=== PATIENT | female | born 1975 | race Caucasian/White ===

== ENCOUNTER → 2020-05-20 | Outpatient (CLI) | payer OTHER ==
--- NOTE | 2020-05-20 10:18 | RAD ---
DOPPLER CAROTID BILAT History: Reason: PULSATILE TINNITUS L EAR / Spl. Instructions: / History: COMPARISON: None Technique: Duplex sonography of the cervical portion of both carotid arteries was performed. Real-time grayscale, color flow Doppler, and Doppler spectral waveform analysis is performed. PQRS Compliance Statement - Stenosis calculations for CT, MR and conventional angiography are based upon measurement of the distal ICA diameter in accordance with the NASCET methodology. Stenosis calculations for carotid ultrasound studies are derived from validated velocity criteria which are known to correlate with the NASCET methodology. Findings: Right side: Peak systolic flow velocity of the CCA is 88 cm/sec. Peak systolic flow velocity of the ICA is 106 cm/sec. The ICA/CCA ratio is 1.2. Peak end diastolic flow velocity of the ICA is 39 cm/sec. The peak systolic velocity of the ECA is 105 cm/sec. No significant plaque formation is identified. Left side: Peak systolic flow velocity of the CCA is 93 cm/sec. Peak systolic flow velocity of the ICA is 98 cm/sec. The ICA/CCA ratio is 1.05. Peak end diastolic flow velocity of the ICA is 48 cm/sec. Peak systolic flow velocity of the ECA is 102 cm/sec. No significant plaque formation is identified. Vertebral arteries: Bilateral vertebral arteries demonstrate antegrade flow. IMPRESSION: 1. No hemodynamically significant internal carotid artery stenosis. Electronically signed by: Sal Jackson DO (05/20/2020 10:15 AM) [id number]
== END ==
LOC: US 09:33
PROVIDERS: ATTEND Family Medicine
DX: H93.A2 Pulsatile tinnitus, left ear (principal)
CPT/HCPCS: 93880